=== PATIENT | male | born 2000 | race Hispanic/Latino ===

== ENCOUNTER 2018-05-31 16:30 | Emergency (ER) | payer SELFPAY ==
[2018-05-31] MEDS ORDERED: Bicillin LA 1.2 MILLION UNITS/2 ML SYRINGE ONE (17:42)
[2018-05-31] MEDS ORDERED: Dexamethasone 4 mg/ml Vial ONE (17:42)
== END 2018-05-31 18:26 | disposition home or self-care (01) ==
LOC: ERS 16:30
DX: J02.0 Streptococcal pharyngitis (principal); F90.9 Attention-deficit hyperactivity disorder, unspecified type; F17.210 Nicotine dependence, cigarettes, uncomplicated; Z71.6 Tobacco abuse counseling
CPT/HCPCS: 87081; 87430; 87804; 96372; 99406; J0561; J1100